=== PATIENT | female | born 1955 | race Caucasian/White ===

== ENCOUNTER 2022-05-06 15:20 | Outpatient (CLI) | payer MEDICARE, OTHER | END 2022-05-06 15:21 | disposition home or self-care (01) | LOC: CSHMAMMO 15:20 | PROVIDERS: ATTEND Internal Medicine Cardiovascular Disease | DX: Z12.31 Encounter for screening mammogram for malignant neoplasm of breast (principal); Z91.89 Other specified personal risk factors, not elsewhere classified | CPT/HCPCS: 77063; 77067 ==

== ENCOUNTER 2024-05-20 10:12 | Outpatient (CLI) | payer MEDICARE, OTHER | END 2024-05-20 10:13 | disposition home or self-care (01) | LOC: CSHMAMMO 10:12 | PROVIDERS: ATTEND Obstetrics & Gynecology | DX: Z12.31 Encounter for screening mammogram for malignant neoplasm of breast (principal); Z91.89 Other specified personal risk factors, not elsewhere classified | CPT/HCPCS: 77063; 77067 ==